=== PATIENT | male | born 1955 | race Caucasian/White ===

== ENCOUNTER 2018-08-21 14:10 | Inpatient (IN) | payer OTHER ==
[~2018-08-21] VITALS: Ht 190.5 cm; Wt 61.5 kg
--- NOTE | 2018-08-21 14:45 | NUR ---
Pt presents to ED with c/o uvula "swelling for months, nasal swelling, and sinus swelling for months". Pt presents to ED with bilateral inner nare swelling, uvula swelling. Pt denies allergies. Pt states the symptoms started a few months ago. Pt connected to environmental monitoring specialist, NIBP, and continous pulse ox. Call light within reach. Pt is afebrile. Pt denies cp, sob, n/v/d. ED MD at bedside. Call light within reach.
[2018-08-21] MEDS ORDERED: SODIUM CHLORIDE FLUSH 10ML SYR IVF ONE (15:00)
[2018-08-21 15:16] LABS: BASOPHILS % (AUTO) 2 % (0-1); EOSINOPHILS # (AUTO) 0.22 x10^3/uL (0-0.4); EOSINOPHILS % (AUTO) 4 % (1-7); LYMPHOCYTES # (AUTO) 1.61 x10^3/uL (1-3.4); LYMPHOCYTES % (AUTO) 27 % (22-44); MD NO; MEAN CORPUSCULAR HEMOGLOBIN 30.2 pg (27.5-34.5); MEAN CORPUSCULAR HGB CONC 33.2 g/dL (33.2-36.2); MEAN CORPUSCULAR VOLUME 90.9 fL (81-97); MEAN PLATELET VOLUME 7.9 fL (7.4-10.4); MONOCYTES # (AUTO) 0.41 x10^3/uL (0.2-0.8); MONOCYTES % (AUTO) 7 % (2-9); NEUTROPHILS # (AUTO) 3.66 x10^3/uL (1.8-6.8); NEUTROPHILS % (AUTO) 61 % (42-75); PLATELET COUNT 304 x10^3/uL (130-400); RED CELL DISTRIBUTION WIDTH 14.3 % (9.4-14.8)
[2018-08-21 15:21] LABS: ANION GAP 6 mmol/L (5-15); CALCIUM 8.5 mg/dL (8.5-10.1); CHLORIDE 104 mmol/L (98-107); CREATININE 0.89 mg/dL (0.7-1.3)
--- NOTE | 2018-08-21 16:09 | NUR ---
Pt resting on gurney connected to all monitors watching T.V.. Pt's brother at bedside. NADN. All safety measures in place. Call light within reach.
--- NOTE | 2018-08-21 16:29 | NUR ---
Pt transported on gurney to [facility]. All safety measures in place.
--- NOTE | 2018-08-21 16:40 | NUR ---
Pt back to room on gurney from imaging.
[2018-08-21] MEDS ORDERED: OMNIPAQUE 350 MG/ML, 75ML BOTTLE ONE (17:02)
--- NOTE | 2018-08-21 18:06 | NUR ---
Pt watching T.V. with brother at bedside. NADN. No needs requested. All safety measures in place. Call light within reach. Pt aware of NPO status and states verbal understanding.
--- NOTE | 2018-08-21 18:53 | NUR ---
Provided report to EUSEBIA Torres. All questions answered. Pt ready to transfer to floor from ED.
[2018-08-21 19:16] VITALS: BP 169/96
[2018-08-21] MEDS ORDERED: COCAINE TOPICAL SOLN 4%, 4ML ONE (19:55)
[2018-08-21] MEDS ORDERED: LIDOCAINE 1%-EPI 1:100K, 20ML ONE (19:56)
[2018-08-21] MEDS ORDERED: hydrALAzine 20 MG/ML, 1ML IVPush PRN (20:00)
[2018-08-21] MEDS ORDERED: DOCUSATE 100 MG CAPSULE PO PRN (20:00)
[2018-08-21] MEDS ORDERED: OXYcodone IR 5MG TABLET PO PRN (20:00)
[2018-08-21] MEDS ORDERED: ACETAMINOPHEN 325 MG TABLET PO PRN (20:00)
[2018-08-21] MEDS ORDERED: ONDANSETRON 2MG/ML, 2ML IVPush PRN ×2 (20:00→22:00)
[2018-08-21] MEDS ORDERED: TEMAZEPAM 15 MG CAPSULE PO PRN (20:00)
[2018-08-21] MEDS: NICOTINE 21 MG/24 HR PATCH.TD24 TD SCH (20:00)
[2018-08-21] MEDS ORDERED: morphine SULFATE 10 MG/ML, 1ML IVPush PRN (20:00)
[2018-08-21] MEDS ORDERED: LIDODERM 5% PATCH TD PRN (20:00)
[2018-08-21] MEDS ORDERED: MIDAZOLAM 1 MG/ML, 2ML ONE (20:05)
[2018-08-21] MEDS ORDERED: FENTANYL PF 250 MCG/5ML ONE (20:05)
[2018-08-21] MEDS ORDERED: ONDANSETRON 2MG/ML, 2ML ONE (20:27)
[2018-08-21] MEDS ORDERED: SUCCINYLCHOLINE 20 MG/ML, 10ML ONE (20:27)
[2018-08-21] MEDS ORDERED: CEFAZOLIN 1,000 MG ONE (20:27)
[2018-08-21] MEDS ORDERED: PROPOFOL 10 MG/ML, 20ML ONE (20:27)
[2018-08-21] MEDS ORDERED: DEXAMETHASONE 4 MG/ML, 1ML ONE (20:27)
[2018-08-21] MEDS ORDERED: ROCURONIUM 10MG/ML,5ML ONE (20:27)
[2018-08-21] MEDS ORDERED: THROMBIN 20,000 UNIT VIAL TP ONE (21:16)
[2018-08-21] MEDS ORDERED: COCAINE TOPICAL SOLN 4%, 4ML TP ONE (21:46)
[2018-08-21] MEDS ORDERED: LIDOCAINE 1%-EPI 1:100K, 20ML INFIL ONE (21:46)
[2018-08-21] MEDS ORDERED: BACITRACIN/POLYMIXIN B SULFATE OINT 14 GM TP ONE (21:47)
[2018-08-21] MEDS ORDERED: OXYcodone 5 MG/5 ML ORAL.SOL UDC PO PRN (22:00)
[2018-08-21] MEDS ORDERED: KETOROLAC 30 MG/1 ML IV PRN (22:00)
[2018-08-21] MEDS ORDERED: ALBUTEROL SULFATE 2.5 MG/3 ML NPPB PRN (22:00)
[2018-08-21] MEDS ORDERED: FENTANYL PF 100 MCG/2ML IV PRN (22:00)
[2018-08-21] MEDS ORDERED: METOCLOPRAMIDE 5 MG/ML, 2ML IV PRN (22:00)
[2018-08-21] MEDS ORDERED: LABETALOL 5 MG/ML SYRINGE IV PRN (22:00)
[2018-08-21] MEDS ORDERED: HYDROmorphone 1 MG/ML, 1ML AMP IV PRN (22:00)
[2018-08-21] MEDS ORDERED: PROMETHAZINE 25 MG/ML, 1ML IV PRN (22:00)
[2018-08-21] MEDS ORDERED: MEPERIDINE/PF 25MG/0.5ML IVPush PRN (22:00)
[2018-08-21] MEDS ORDERED: hydrALAzine 20 MG/ML, 1ML IV PRN (22:00)
[2018-08-21] MEDS ORDERED: OXYcodone 5 MG/5 ML ORAL.SOL UDC ONE (22:07)
[2018-08-21] MEDS ORDERED: FENTANYL PF 100 MCG/2ML ONE (22:17)
[2018-08-21] MEDS ORDERED: LACTATED RINGERS 1,000 ML IV SCH (23:00)
[2018-08-21] MEDS ORDERED: HYDROcodone/APAP 5/325 TABLET PO PRN (23:00)
[2018-08-21] MEDS: SODIUM CHLORIDE NASAL SPRAY 45ML BOTTLE NAS SCH (23:44)
[2018-08-21] MEDS: CEPHALEXIN 500 MG CAPSULE PO SCH (23:44)
[2018-08-22 00:10] VITALS: BP 123/72
[2018-08-22 05:42] LABS: BASOPHILS # (AUTO) 0.02 x10^3/uL (0-0.1); BASOPHILS % (AUTO) 0 % (0-1); EOSINOPHILS % (AUTO) 0 % (1-7); LYMPHOCYTES # (AUTO) 0.45 x10^3/uL (1-3.4); LYMPHOCYTES % (AUTO) 6 % (22-44); MD NO; MEAN CORPUSCULAR HEMOGLOBIN 29.8 pg (27.5-34.5); MEAN CORPUSCULAR HGB CONC 32.7 g/dL (33.2-36.2); MEAN CORPUSCULAR VOLUME 91.2 fL (81-97); MEAN PLATELET VOLUME 8.3 fL (7.4-10.4); MONOCYTES # (AUTO) 0.18 x10^3/uL (0.2-0.8); MONOCYTES % (AUTO) 2 % (2-9); NEUTROPHILS # (AUTO) 7.13 x10^3/uL (1.8-6.8); NEUTROPHILS % (AUTO) 92 % (42-75); PLATELET COUNT 286 x10^3/uL (130-400); RED BLOOD COUNT 3.87 x10^6/uL (4.38-5.82); RED CELL DISTRIBUTION WIDTH 14.3 % (9.4-14.8)
[2018-08-22 05:46] LABS: ANION GAP 6 mmol/L (5-15); CALCIUM 8.8 mg/dL (8.5-10.1); CHLORIDE 102 mmol/L (98-107)
[2018-08-22 05:47] LABS: CREATININE 1.03 mg/dL (0.7-1.3)
[2018-08-22] MEDS: SODIUM CHLORIDE NASAL SPRAY 45ML BOTTLE NAS SCH ×5 (05:49→20:55)
[2018-08-22] MEDS: CEPHALEXIN 500 MG CAPSULE PO SCH ×4 (05:49→20:55)
[2018-08-22 07:48] VITALS: BP 124/81
[2018-08-22] MEDS: SODIUM CHLORIDE 0.9% 1,000 ML IV SCH (07:54)
[2018-08-22] MEDS: ENOXAPARIN 40 MG/0.4 ML SQ SCH (07:54)
[2018-08-22] MEDS ORDERED: ACETAMINOPHEN 325 MG TABLET PO PRN (08:00)
[2018-08-22 12:55] VITALS: BP 124/70
[2018-08-22 19:36] VITALS: BP 139/83
[2018-08-22] MEDS: NICOTINE 21 MG/24 HR PATCH.TD24 TD SCH (20:00)
[2018-08-23] MEDS: SODIUM CHLORIDE 0.9% 1,000 ML IV SCH (00:10)
[2018-08-23 00:52] VITALS: BP 143/86
[2018-08-23] MEDS: SODIUM CHLORIDE NASAL SPRAY 45ML BOTTLE NAS SCH ×2 (05:17→10:00)
[2018-08-23] MEDS: CEPHALEXIN 500 MG CAPSULE PO SCH ×2 (05:17→12:21)
[2018-08-23 07:33] VITALS: BP 152/88
[2018-08-23] MEDS: ENOXAPARIN 40 MG/0.4 ML SQ SCH (09:17)
[2018-08-23] MEDS ORDERED: NICO-487 TD (10:22)
[2018-08-23] MEDS ORDERED: CEPH-376 PO (10:22)
== END 2018-08-23 14:35 | disposition home or self-care (01) | DRG 133 ==
LOC: ED 15:23 → EDIP 17:55 → 3NW 19:08 → DCLOUNGE 08-23 14:12
PROVIDERS: ADMIT Internal Medicine; ATTEND Internal Medicine
PROC: 09B Ear, Nose, Sinus, Excision (ICD-10-PCS; 2018-08-21)
PROC: 09BL8ZZ Excision of Nasal Turbinate, Via Natural or Artificial Opening Endoscopic (ICD-10-PCS; principal; 2018-08-21 19:45)
DX: J33.0 Polyp of nasal cavity (principal); E87.1 Hypo-osmolality and hyponatremia; T81.30XA Disruption of wound, unspecified, initial encounter; Z68.1 Body mass index [BMI] 19.9 or less, adult; F12.10 Cannabis abuse, uncomplicated; F17.210 Nicotine dependence, cigarettes, uncomplicated; G47.00 Insomnia, unspecified; I10 Essential (primary) hypertension; J32.4 Chronic pansinusitis; Z71.6 Tobacco abuse counseling
CPT/HCPCS: 36415; 70487; 71045; 80048; 82040; 85025; 88305; 99285; C1776; G0378; J0690; J1100; J1650; J2250; J2405; J2704; J3010; J3490; Q9967; J0330; J0360; J7030; J7120